=== PATIENT | male | born 1975 | race Two or more races ===

== ENCOUNTER 2024-08-06 14:33 | Emergency (ER) | payer OTHER ==
[~2024-08-06] VITALS: Ht 167.6 cm; Wt 90.7 kg
[2024-08-06] MEDS ORDERED: FAMOTIDINE/PF 20 MG in 0.9 % SODIUM CHLORIDE 8 ML IV PUSH STA (16:12)
[2024-08-06] MEDS ORDERED: 0.9 % SODIUM CHLORIDE 1,000 ML IV SCH (16:15)
[2024-08-06] MEDS ORDERED: DIPHENOXYLATE HCL/ATROPINE 1 UDTAB TABLET PO ONE (16:15)
[2024-08-06] MEDS ORDERED: HYOSCYAMINE SULFATE 0.125 MG TAB.SUBL SL ONE (16:15)
[2024-08-06] MEDS ORDERED: FAMOTIDINE/PF 20 MG/2 ML VIAL ONE (16:24)
[2024-08-06] MEDS ORDERED: HYOSCYAMINE SULFATE 0.125 MG TAB.SUBL ONE (16:24)
[2024-08-06 16:51] LABS: HEMATOCRIT 44.7 % (39.0-48.0); HEMOGLOBIN 14.9 g/dL (13-16.00); MEAN CELL VOLUME 85.1 fL (80.0-100.00); MEAN CORPUSCULAR HEMOGLOBIN 28.3 pg (27.00-32.0); MEAN CORPUSCULAR HGB CONC 33.3 g/dl (32.0-36.0); PLATELET COUNT 242 K/uL (150-450); RED BLOOD COUNT 5.26 M/uL (4.00-6.00); RED CELL DISTRIBUTION WIDTH 14.2 % (11.5-14.5)
[2024-08-06] MEDS ORDERED: METRONIDAZOLE/SODIUM CHLORIDE 100 ML IV SCH (17:00)
[2024-08-06 17:15] LABS: ALBUMIN 3.9 gm/dL (3.4-5.0); ALKALINE PHOSPHATASE 84 U/L (50-136); ALT/SGPT 62 U/L (12-78); AMYLASE 27 U/L (25-115); ANION GAP 6 (10.0-20.0); AST/SGOT 32 U/L (15-37); BILIRUBIN TOTAL 0.37 mg/dL (0.3-1.2); BILIRUBIN,CONJUGATED < 0.10 mg/dL (0.0-0.2); BILIRUBIN,UNCONJUGATED 0.27 mg/dL (0.0-0.6); BLOOD UREA NITROGEN 12 mg/dL (7-18); BUN CREA RATIO 12 (7.0-25.0); CALCIUM 9.3 mg/dL (8.5-10.1); CARBON DIOXIDE 30 mEq/L (21-32); CHLORIDE 108 mmol/L (98-107); GFR 79.09; GLUCOSE FASTING 95 mg/dL (65-100); LIPASE 15 U/L (13-75); OSMOLALITY SERUM 279 MOSM/KG (275-295); POTASSIUM 4.27 mEq/L (3.5-5.1); SODIUM 140 mmol/L (136-145); TOTAL PROTEIN 7.9 gm/dL (6.4-8.2)
[2024-08-06] MEDS ORDERED: INTESTINEX680 M1 PO (19:04)
[2024-08-06] MEDS ORDERED: PEPCID AC20 MG PO (19:04)
[2024-08-06] MEDS ORDERED: METRONIDAZOLE500 MG PO (19:04)
== END 2024-08-06 21:02 | disposition home or self-care (01) ==
LOC: ER 14:34
PROVIDERS: General Practice
DX: R19.7 Diarrhea, unspecified (principal); I10 Essential (primary) hypertension; Z20.822 Contact with and (suspected) exposure to COVID-19